=== PATIENT | male | born 1955 | race Caucasian/White ===

== ENCOUNTER 2020-01-03 | Emergency (ER) | payer BC ==
[2020-01-03] MEDS ORDERED: PRILOSEC20 MG/CAP PO (16:30)
== END 2020-01-03 17:50 | disposition home or self-care (01) | DRG 556 ==
DX: M79.672 Pain in left foot (principal); M77.32 Calcaneal spur, left foot; W16.522A Jumping or diving into swimming pool striking bottom causing other injury, initial encounter; Y93.11 Activity, swimming; Y92.008 Other place in unspecified non-institutional (private) residence as the place of occurrence of the external cause

== ENCOUNTER 2023-05-31 16:30 | Emergency (ER) | payer MEDICARE, BC ==
[~2023-05-31] VITALS: Ht 172.7 cm; Wt 108.9 kg
[2023-05-31] VITALS (14 sets, daily range): BP systolic 116–144; BP diastolic 68–91
[~2023-05-31 16:30] MED LIST: PRILOSEC20 MG/CAP PO
[2023-05-31 17:57] LABS: BASO% 0.1 % (0-3); EOS% 1.2 % (0-8); HEMOGLOBIN 16.1 g/dl (14.0-18.0); IMMATURE GRANULOCYTES 0.3 % (0.0-5.0); LYMPH% 11.8 % (15-41); MEAN CELL VOLUME 93.3 fL CALC (80.0-100.0); MEAN CORPUSCULAR HGB 31.9 pG CALC (26.0-32.0); MEAN CORPUSCULAR HGB CONC 34.3 g/dL CAL (32.0-36.0); MONO% 10.4 % (2-13); NEUT# 10.17 thou/uL (1.82-7.42); NEUT% 76.2 % (42-76); RED BLOOD COUNT 5.04 mill/uL (4.70-6.10); RED CELL DISTRI WIDTH 12.8 % (11.5-15.5)
[2023-05-31 18:08] LABS: ALBUMIN 4.5 g/dL (3.2-5.0); ALKALINE PHOSPHATASE 65 u/l (38-126); ANION GAP 15 (6-22 (CALC)); BILIRUBIN, TOTAL 1.2 mg/dL (0.2-1.3); BUN 21 mg/dL (8-23); BUN/CREATININE RATIO 15 (12-20 (CALC)); CARBON DIOXIDE 22 mmol/l (22-30); CHLORIDE 104 mmol/l (95-108); CREATININE 1.4 mg/dL (0.7-1.3); GFR FOR AFR.AMER. > 60 ML/MIN (>=60 (CALC)); GFR OTHER RACES 51 ML/MIN (>=60 (CALC)); LIPASE 109 u/l (23-300); SGOT/AST 31 u/l (19-48); SODIUM 136 mmol/l (137-146); TOTAL PROTEIN 8.2 g/dL (6.3-8.2)
[2023-05-31] MEDS ORDERED: TRAMADOL HYDROC50 M1 PO (20:27)
[2023-05-31] MEDS ORDERED: AMOX/K CLAV875 M1 PO (20:27)
== END 2023-05-31 21:00 | disposition home or self-care (01) ==
LOC: ED 16:30
PROVIDERS: Nurse Practitioner
DX: K57.30 Diverticulosis of large intestine without perforation or abscess without bleeding (principal); Z20.822 Contact with and (suspected) exposure to COVID-19
CPT/HCPCS: Q9967